=== PATIENT | female | born 1975 | race Caucasian/White ===

== ENCOUNTER 2017-09-25 05:45 | Inpatient (IN) | payer BC, OTHER ==
[~2017-09-25 05:45] MED LIST: Buffered Lidocaine 0.9% SYRIN* 5 ML/SYR SYRINGE INTRADERM ONE
[2017-09-25] MEDS ORDERED: Heparin VIAL(*) 5000 UNITS/ML VIAL (FIVE THOUSAND) ONE (05:56)
[2017-09-25] MEDS ORDERED: Metoclopramide TAB* 10 MG ONE (05:56)
[2017-09-25] MEDS ORDERED: Famotidine TAB* 20 MG ONE (05:56)
[2017-09-25] MEDS ORDERED: ceFAZolin 2 GM PREMIX (*) 2 GM/50 ML BAG IVPB ONE (05:57)
[2017-09-25] MEDS ORDERED: Buffered Lidocaine 0.9% SYRIN* 5 ML/SYR SYRINGE ONE (05:57)
[2017-09-25] MEDS ORDERED: ceFAZolin 1 GM in Dextrose (*) 1 GM/50 ML BAG IVPB ONE (05:57)
[2017-09-25] MEDS ORDERED: Famotidine TAB* 20 MG PO ONE (06:00)
[2017-09-25] MEDS ORDERED: Metoclopramide TAB* 10 MG PO ONE (06:00)
[2017-09-25] MEDS ORDERED: fentaNYL* 50 MCG/ML 2 ML VIAL (100 MCG VIAL) ONE ×4 (07:32→10:59)
[2017-09-25] MEDS ORDERED: Bupivacaine 0.5% SDV PF* 30ML VIAL ONE (07:32)
[2017-09-25] MEDS ORDERED: Propofol* 10 MG/ML 20 ML BTL IV PUSH ONE (07:33)
[2017-09-25] MEDS ORDERED: Lidocaine 2% PF * 5 ML VIAL ONE (07:33)
[2017-09-25] MEDS ORDERED: Dexamethasone IV* 4 MG/ML 1 ML (4 MG) ONE (07:33)
[2017-09-25] MEDS ORDERED: Atracurium* 10 MG/ML 10 ML VIAL ONE (07:33)
[2017-09-25] MEDS ORDERED: EPHEDrine (Pressors)* 50 MG/ML VIAL ONE (08:17)
[2017-09-25] MEDS ORDERED: DiMENhydriNATE IV* 50 MG/ML VIAL IV PUSH PRN (08:24)
[2017-09-25] MEDS ORDERED: Naloxone* 0.4 MG/ML 1 ML VIAL IV PRN (08:24)
[2017-09-25] MEDS ORDERED: HYDROmorphone INJ* 1 MG/ML CARPUJECT SYRINGE IV PRN (08:24)
[2017-09-25] MEDS ORDERED: Ondansetron INJ* 2 MG/ML VIAL IV PRN ×2 (08:24→10:53)
[2017-09-25] MEDS ORDERED: oxyCODONE TAB* 5 MG TAB PO PRN (08:24)
[2017-09-25] MEDS ORDERED: Ketorolac INJ* 30 MG/ML 1 ML VIAL ONE (08:46)
--- NOTE | 2017-09-25 09:00 | OP ---
Operative Report - Blank - Operative Report Date of Operation: 09/25/17 Note: Pre-op Dx: Morbid Obesity, DEANNE Post-op Dx: Same Procedure: Laparoscopic Sleeve Gastrectomy Surgeon: Rosina Assist: GERRY Banuelos Anesthesia: GET IV Fluids: 700mL RL EBL: <10mL Drains: None Specimen: Portion of stomach Complications: None Findings: Dictated
[2017-09-25] MEDS ORDERED: DiMENhydriNATE IV* 50 MG/ML VIAL ONE (09:04)
[2017-09-25] MEDS: fentaNYL* 50 MCG/ML 2 ML VIAL (100 MCG VIAL) IV PRN ×5 (09:06→11:01)
[2017-09-25] MEDS ORDERED: HYDROmorphone INJ* 2 MG/ML CARPUJECT SYRINGE ONE (09:31)
[2017-09-25] MEDS ORDERED: Acetaminophen ADULT LIQ* 650 MG/20.3 ML UDC PO PRN (10:53)
[2017-09-25] MEDS ORDERED: diPHENhydraMINE IV* 50 MG/ML 1 ml VIAL (BENADRYL) SLOW PUSH PRN (10:53)
[2017-09-25] MEDS: HYDROmorphone INJ* 2 MG/ML CARPUJECT SYRINGE IV PRN ×4 (11:50→23:23)
[2017-09-25] MEDS: Ondansetron 40 MG VIAL* 2 MG/ML 20 ML VIAL IV PRN ×2 (14:01→20:17)
[2017-09-25] MEDS: Ketorolac INJ* 30 MG/ML 1 ML VIAL IV PRN ×2 (14:17→20:15)
[2017-09-25] MEDS: Famotidine IV* 10 MG/ML 2 ML (20 mg) IV SLOW PU SCH (20:18)
[2017-09-26] MEDS: Ketorolac INJ* 30 MG/ML 1 ML VIAL IV PRN ×4 (03:46→22:01)
[2017-09-26] MEDS: HYDROmorphone INJ* 2 MG/ML CARPUJECT SYRINGE IV PRN ×2 (03:46→07:37)
[2017-09-26] MEDS: Ondansetron 40 MG VIAL* 2 MG/ML 20 ML VIAL IV PRN ×4 (03:46→22:01)
[2017-09-26] MEDS: Famotidine IV* 10 MG/ML 2 ML (20 mg) IV SLOW PU SCH ×2 (07:36→22:01)
[2017-09-26] MEDS: FLUoxetine CAP* 20 MG PO SCH (09:57)
[2017-09-26] MEDS: HYDROcodone/ACET. 7.5/325 LIQ* 15 ML UDC PO PRN ×2 (09:58→16:15)
[2017-09-26] MEDS: D5W 1/2 NS KCl 20 Meq 1000 ML* 1,000 ML IV SCH ×2 (14:12→21:53)
--- NOTE | 2017-09-26 19:24 | OP ---
CC: [facility] * DATE OF OPERATION: 09/25/17 - ROOM #353 DATE OF : 75 SURGEON: Billy Almaguer MD DISTRIBUTOR CLEANER: Dr. Kelley. ANESTHESIA: General endotracheal. ANESTHESIOLOGIST: Dr. Culp. PRE-OP DIAGNOSIS: Morbid obesity. POST-OP DIAGNOSIS: Morbid obesity. OPERATIVE PROCEDURE: Laparoscopic sleeve gastrectomy. ESTIMATED BLOOD LOSS: Minimal. IV FLUIDS: Crystalloids. SPECIMEN: Portion of stomach. DRAINS: None. COMPLICATIONS: None. COUNTS: Instrument, needle, and sponge counts correct. DESCRIPTION OF PROCEDURE: The patient was brought to the operating room and was placed on the table supine. Sequential compression devices were placed on both lower extremities. She was positioned and padded appropriately. She was administered general anesthesia. Her abdomen was prepped and draped in the usual sterile fashion and a time-out was performed. Local anesthetic was infiltrated into the skin and soft tissue prior to each incision. Entry into the abdomen was through a left upper quadrant incision accommodating a 5-mm optical trocar. After accessing the peritoneal cavity, carbon dioxide was insufflated to a pressure of 15 mmHg. Under direct visualization, a 12-mm bladeless trocars were placed in the supraumbilical midline and right upper quadrant. A 5-mm trocar was placed in the left upper quadrant laterally. Layla liver retractor was placed percutaneously in the subxiphoid position and used to elevate the left lobe of the liver. Gastric anatomy appeared normal. The greater curvature was measured 6-cm from the pylorus, at which point the greater curvature was skeletonized in all vessels used in the Liga[employer]. In addition, any adhesions in the lesser sac were divided as were posterior short gastric vessels and the fundus. A sleeve gastrectomy was performed over a 40-Danish bougie using the EndoGIA stapler with purple reinforced staple cartridges. After completing the sleeve gastrectomy, the gastric specimen was retrieved through the right upper quadrant incision using an endoscopic retrieval bag. Subsequently, staple lines were inspected and noted to be intact and hemostatic. Ports were then removed under direct visualization. Carbon dioxide was released. Incisions were closed with 4-0 Monocryl in a subcuticular fashion. Steri-Strips were applied with dry dressings. The patient tolerated this procedure well, was extubated and transferred to the recovery room in stable condition. [id number]/[facility] #: [id number] [facility] HOSPITALRoderick
[2017-09-26] MEDS: Simethicone TAB* 80 MG TAB.CHEW PO PRN (23:20)
[2017-09-27] MEDS: Simethicone TAB* 80 MG TAB.CHEW PO PRN ×2 (06:08→10:52)
[2017-09-27] MEDS: D5W 1/2 NS KCl 20 Meq 1000 ML* 1,000 ML IV SCH (06:08)
[2017-09-27] MEDS: Ondansetron 40 MG VIAL* 2 MG/ML 20 ML VIAL IV PRN (07:29)
[2017-09-27] MEDS: Famotidine IV* 10 MG/ML 2 ML (20 mg) IV SLOW PU SCH (09:34)
[2017-09-27] MEDS: FLUoxetine CAP* 20 MG PO SCH (09:34)
--- NOTE | 2017-09-27 09:42 | DS ---
AMENDED REPORT NOW INCLUDES COSIGNER DESIGNATION - ESIGNED BEFORE ADJUSTMENT CC: Dr. Aditi Gallegos. DATE OF ADMISSION: 09/25/2017. DATE OF DISCHARGE: 09/27/2017. ATTENDING SURGEON: Dr. Billy Almaguer * (NELDA Hand dictating). HOSPITAL COURSE: Please refer to admission history and physical and operative note for details. The patient was taken to the operating room on 09/25/2017 at which time she underwent laparoscopic sleeve gastrectomy with Dr. Almaguer. Her postoperative course has been uneventful with gradual improvement in pain and tolerance or oral bariatric clear liquids. She was seen and examined by Dr. Almaguer the morning of discharge. Vital signs the morning of discharge: Temperature 98.7, blood pressure 139/78, pulse 62, respirations 16, room air saturation [address] Almaguer. IMPRESSION: Status post laparoscopic sleeve gastrectomy. PLAN: Home today. She does request prescription for Zofran ODT which will be sent to her pharmacy. She has a prescription for Hydrocodone/APAP liquid prn for stronger pain and may use Tylenol and/or eqlp-ili-pijlyyp ibuprofen prn for mild to moderate pain. She has an appointment in place for follow-up at the [facility] next week. NELDA HAND [id number]/[facility] #: [id number] MTDD
[2017-09-27 11:00] VITALS: BP 136/84
== END 2017-09-27 11:05 | disposition home or self-care (01) | DRG 403 ==
LOC: AA 05:45 → SSU 11:39
PROVIDERS: ADMIT Surgery; ATTEND Surgery
PROC: 0DB64Z3 Excision of Stomach, Percutaneous Endoscopic Approach, Vertical (ICD-10-PCS; principal; 2017-09-25 07:30)
DX: E66.01 Morbid (severe) obesity due to excess calories (principal); F32.9 Major depressive disorder, single episode, unspecified; I37.0 Nonrheumatic pulmonary valve stenosis; G47.33 Obstructive sleep apnea (adult) (pediatric); Z68.41 Body mass index [BMI] 40.0-44.9, adult; Z88.8 Allergy status to other drugs, medicaments and biological substances; Z88.1 Allergy status to other antibiotic agents; Z88.3 Allergy status to other anti-infective agents; Z91.040 Latex allergy status; Z90.49 Acquired absence of other specified parts of digestive tract; Z83.3 Family history of diabetes mellitus; Z82.49 Family history of ischemic heart disease and other diseases of the circulatory system; Z83.49 Family history of other endocrine, nutritional and metabolic diseases; Z82.3 Family history of stroke; Z87.891 Personal history of nicotine dependence; Z72.89 Other problems related to lifestyle
CPT/HCPCS: 43775; 81025; 88307; A9270-GY; J0690; J1100; J1170; J1240; J1644; J1885; J2704; J3010